=== PATIENT | male | born 1990 | race Hispanic/Latino ===

== ENCOUNTER 2021-12-28 18:15 | Inpatient (IN) | payer OTHER, SELFPAY ==
[~2021-12-28 18:15] MED LIST: Iopamidol-370 76% 500 ML 1 ML ONE
[2021-12-28] MEDS ORDERED: Fentanyl 100 MCG/2 ML VIAL ONE (18:34)
[2021-12-28 18:58] LABS: #Eosinphils 0.1 thou/uL (0.0-0.7); #Lymphocytes 2.3 thou/uL (1.20-3.40); #Monocytes 0.8 thou/uL (0.11-0.59); #Neutrophils 15.5 thou/uL (1.40-6.50); %Basophils 0.2 % (0.0-1.0); %Eosinophils 0.3 % (0.0-10.0); %Lymphocytes 12.2 % (21.0-51.0); %Monocytes 4.4 % (0.0-10.0); %Neutrophils 82.8 % (42.0-75.0); Hemoglobin 13.9 g/dL (14.0-18.0); Mean Corpuscular HGB CONC 34.6 g/dL (32.0-36.0); Mean Corpuscular Hemoglobin 31.4 pg (27.0-31.0); Mean Corpuscular Volume 90.7 fL (78.0-98.0); Mean Platelet Volume 7.8 fL (7.4-10.4); Platelet Count 233 thou/uL (130-400); RBC Distribution Width 11.5 % (11.5-14.5); Red Blood Cell (RBC) Count 4.42 mill/uL (4.70-6.10); White Blood Cell (WBC) Count 18.7 thou/uL (4.8-10.8)
[2021-12-28] MEDS ORDERED: Morphine 4 MG/ML VIAL ONE ×2 (19:15→22:08)
[2021-12-28 19:24] LABS: ALT (SGPT) 36 U/L (8-55); AST (SGOT) 26 U/L (5-34); Albumin 3.9 g/dL (3.5-5.0); Alkaline Phosphatase 87 U/L (40-110); Anion Gap 12 mmol/L (10-20); BUN (Urea Nitrogen) 13 mg/dL (8.9-20.6); Bilirubin, Total 1.1 mg/dL (0.2-1.2); Calc. Creatinine Clearance 0 mL/min (70-130); Calcium 8.7 mg/dL (7.8-10.44); Carbon Dioxide 25 mmol/L (22-29); Chloride 107 mmol/L (98-107); Estimated GFR 82; Globulin 3.1 g/dL (2.4-3.5); Glucose 92 mg/dL (70-105); Potassium 3.9 mmol/L (3.5-5.1); Sodium 140 mmol/L (136-145)
[2021-12-28] MEDS ORDERED: Lidocaine 1% PF 5 ML VIAL ONE ×2 (21:07→21:13)
[2021-12-28] MEDS ORDERED: Morphine 2 MG/ML VIAL SLOW IVP PRN (22:09)
[2021-12-28] MEDS ORDERED: Dextrose 5% in Water 1,000 ML IV PRN (22:09)
[2021-12-28] MEDS ORDERED: Promethazine HCl 25 MG/ML VIAL IM PRN (22:09)
[2021-12-28] MEDS ORDERED: Ondansetron ODT 4 MG TAB PO PRN (22:09)
[2021-12-28] MEDS ORDERED: Morphine 4 MG/ML VIAL SLOW IVP PRN (22:09)
[2021-12-28] MEDS ORDERED: Ondansetron PF 4 MG/2 ML Vial IVP PRN (22:09)
[2021-12-28] MEDS ORDERED: Dextrose 50% Abboject 50 ML SYRINGE SLOW IVP PRN (22:09)
[2021-12-28] MEDS ORDERED: traMADol HCl 50 MG TAB PO PRN (22:13)
[2021-12-28] MEDS ORDERED: Ibuprofen 200 MG TAB PO PRN (22:13)
[2021-12-28] MEDS: Acetaminophen 500 MG TAB PO SCH (23:30)
[2021-12-28] MEDS ORDERED: Sodium Chloride 0.9% 1,000 ML IV SCH (23:30)
[2021-12-28] MEDS: traMADol HCl 50 MG TAB PO SCH (23:31)
[2021-12-29 01:10] VITALS: BMI 40.3
[2021-12-29 01:38] LABS: SARS-CoV-2 NAA Rapid Test Not Detected (NotDetected)
[2021-12-29] MEDS: Cyclobenzaprine 10 MG TAB PO PRN ×3 (02:29→15:27)
[2021-12-29] MEDS: Gabapentin 100 MG CAP PO SCH ×3 (04:57→23:33)
[2021-12-29] MEDS: Acetaminophen 500 MG TAB PO SCH ×4 (04:58→23:33)
[2021-12-29] MEDS: traMADol HCl 50 MG TAB PO SCH ×4 (04:58→23:34)
[2021-12-29] MEDS ORDERED: CEFAZOLIN 2 GM in Sodium Chloride 0.9% 100 ML IVPB SCH (07:30)
[2021-12-29] MEDS ORDERED: TETANUS, DIPHTHERIA TOX,ADULT (TDVAX) 0.5 ML VIAL IM ONE (09:00)
[2021-12-29] MEDS: Polyethylene Glycol 3350 17 GM Packet PO SCH (09:27)
[2021-12-29] MEDS: Senokot S 8.6-50 MG TAB PO SCH ×2 (09:29→20:10)
[2021-12-29] MEDS: Famotidine 20 MG TAB PO SCH ×2 (09:29→20:11)
[2021-12-29] MEDS: Ascorbic Acid 500 mg Chewable Tablet PO SCH (20:10)
[2021-12-30 05:02] LABS: #Eosinphils 0.2 thou/uL (0.0-0.7); #Lymphocytes 2.8 thou/uL (1.20-3.40); #Monocytes 0.7 thou/uL (0.11-0.59); #Neutrophils 6.5 thou/uL (1.40-6.50); %Basophils 0.4 % (0.0-1.0); %Eosinophils 2.4 % (0.0-10.0); %Lymphocytes 27.1 % (21.0-51.0); %Monocytes 6.6 % (0.0-10.0); %Neutrophils 63.4 % (42.0-75.0); Hemoglobin 13.5 g/dL (14.0-18.0); Mean Corpuscular HGB CONC 33.4 g/dL (32.0-36.0); Mean Corpuscular Hemoglobin 30.7 pg (27.0-31.0); Mean Corpuscular Volume 91.9 fL (78.0-98.0); Mean Platelet Volume 7.7 fL (7.4-10.4); Platelet Count 226 thou/uL (130-400); RBC Distribution Width 11.6 % (11.5-14.5); Red Blood Cell (RBC) Count 4.42 mill/uL (4.70-6.10); White Blood Cell (WBC) Count 10.2 thou/uL (4.8-10.8)
[2021-12-30] MEDS: Acetaminophen 500 MG TAB PO SCH ×3 (05:06→17:06)
[2021-12-30] MEDS: traMADol HCl 50 MG TAB PO SCH ×3 (05:06→17:06)
[2021-12-30] MEDS: Gabapentin 100 MG CAP PO SCH ×2 (05:06→14:26)
[2021-12-30 05:21] LABS: Anion Gap 13 mmol/L (10-20); BUN (Urea Nitrogen) 11 mg/dL (8.9-20.6); Calc. Creatinine Clearance 180 mL/min (70-130); Calcium 8.8 mg/dL (7.8-10.44); Carbon Dioxide 24 mmol/L (22-29); Chloride 106 mmol/L (98-107); Estimated GFR 109; Glucose 92 mg/dL (70-105); Sodium 139 mmol/L (136-145)
[2021-12-30] MEDS: Senokot S 8.6-50 MG TAB PO SCH (07:30)
[2021-12-30] MEDS: Ascorbic Acid 500 mg Chewable Tablet PO SCH (07:30)
[2021-12-30] MEDS: Famotidine 20 MG TAB PO SCH (07:30)
[2021-12-30] MEDS: Polyethylene Glycol 3350 17 GM Packet PO SCH (07:30)
[2021-12-30] MEDS ORDERED: Sodium Chloride 0.9% 1,000 ML IV SCH (14:00)
[2021-12-30] MEDS ORDERED: Bacitracin Zinc Ointment 30 gm TUBE ONE (17:54)
[2021-12-30] MEDS ORDERED: Bupivacaine PF 0.5% 30 ML VIAL ONE (17:54)
[2021-12-30] MEDS ORDERED: Midazolam HCl 2 mg/2 ml Vial ONE (18:01)
[2021-12-30] MEDS ORDERED: Ketamine 50 MG/ML (10ML VIAL) ONE (18:02)
[2021-12-30] MEDS ORDERED: fentaNYL Citrate/PF 100 MCG/2 ML SYRINGE ONE (18:02)
[2021-12-30] MEDS ORDERED: HYDROmorphone 0.5 MG/0.5 ML SYRINGE ONE (18:02)
[2021-12-30] MEDS ORDERED: Sodium Chloride 0.9% 100 ML ONE (18:07)
[2021-12-30] MEDS ORDERED: CEFAZOLIN 2 GM VIAL ONE (18:07)
[2021-12-30] MEDS ORDERED: Lidocaine 1% PF 5 ML VIAL ONE (18:13)
[2021-12-30] MEDS ORDERED: Ketorolac Tromethamine 30 MG/ML VIAL ONE (18:13)
[2021-12-30] MEDS ORDERED: PROPOFOL 200 MG/20 ML VIAL ONE (18:13)
[2021-12-30] MEDS ORDERED: Dexamethasone 20 MG/5 ML VIAL ONE (18:13)
[2021-12-30] MEDS ORDERED: Ondansetron PF 4 MG/2 ML Vial ONE ×2 (18:13→22:10)
[2021-12-30] MEDS ORDERED: Meperidine HCl/PF 25 MG/ML VIAL SLOW IVP PRN (21:57)
[2021-12-30] MEDS ORDERED: HYDROmorphone 2 MG/ML VIAL SLOW IVP PRN (21:57)
[2021-12-30] MEDS ORDERED: Promethazine HCl 25 MG/ML VIAL IM PRN (21:57)
[2021-12-30] MEDS ORDERED: Promethazine HCl 25 MG/ML VIAL IVPB PRN (21:57)
[2021-12-30] MEDS ORDERED: Morphine Sulfate 2 MG/ML SYRINGE SLOW IVP PRN (21:57)
[2021-12-30] MEDS ORDERED: PACU-Morphine 4MG/ML VIAL SLOW IVP PRN (21:57)
[2021-12-30] MEDS ORDERED: Ketorolac Tromethamine 30 MG/ML VIAL IVP PRN (21:57)
[2021-12-30] MEDS ORDERED: Ondansetron HCl/PF 4 MG/2 ML Vial IVP PRN (21:57)
[2021-12-30] MEDS ORDERED: Morphine 4 MG/ML VIAL SLOW IVP PRN (22:14)
[2021-12-30] MEDS ORDERED: HYDROcodone/Acetaminophen 7.5/325 mg Tablet PO PRN (22:15)
[2021-12-30] MEDS ORDERED: Promethazine HCl 25 MG/ML VIAL ONE (22:27)
[2021-12-30] MEDS ORDERED: Fentanyl 100 MCG/2 ML VIAL ONE (22:35)
[2021-12-30] MEDS ORDERED: Scopolamine 1.5 mg/72 hour Patch ONE (23:04)
[2021-12-30] MEDS ORDERED: Metoclopramide HCl 10 MG/2 ML VIAL ONE (23:04)
[2021-12-30] MEDS ORDERED: Famotidine/PF 20 mg/2ml Vial ONE ×2 (23:04→23:05)
[2021-12-31] MEDS: traMADol HCl 50 MG TAB PO SCH ×3 (00:19→11:44)
[2021-12-31] MEDS: Ascorbic Acid 500 mg Chewable Tablet PO SCH ×2 (00:20→09:17)
[2021-12-31] MEDS: Famotidine 20 MG TAB PO SCH ×2 (00:21→09:16)
[2021-12-31] MEDS: Senokot S 8.6-50 MG TAB PO SCH ×2 (00:21→09:16)
[2021-12-31] MEDS: Gabapentin 100 MG CAP PO SCH ×2 (00:21→05:52)
[2021-12-31] MEDS: Acetaminophen 500 MG TAB PO SCH ×3 (00:21→11:44)
[2021-12-31] MEDS: CEFAZOLIN 2 GM in Sodium Chloride 0.9% 100 ML IVPB SCH ×3 (00:23→11:46)
[2021-12-31] MEDS ORDERED: Gabapentin 100 MG CAP PO SCH (08:17)
[2021-12-31] MEDS ORDERED: Gabapentin 300 MG CAP PO SCH ×2 (08:30→14:00)
[2021-12-31] MEDS: Polyethylene Glycol 3350 17 GM Packet PO SCH (09:20)
[2021-12-31] MEDS ORDERED: Ibuprofen 200 MG TAB PO SCH (14:00)
[2021-12-31 14:09] VITALS: BP 115/71; TEMP 98.6
== END 2021-12-31 15:40 | disposition home or self-care (01) | DRG 511 ==
LOC: ERS 18:15 → SURG B 22:12
PROVIDERS: ADMIT Physician Assistant Medical; ATTEND Surgery
PROC: 0HQ0XZZ Repair Scalp Skin, External Approach (ICD-10-PCS; 2021-12-28)
PROC: 0PSJ04Z Reposition Left Radius with Internal Fixation Device, Open Approach (ICD-10-PCS; principal; 2021-12-30)
PROC: 0PUJ07Z Supplement Left Radius with Autologous Tissue Substitute, Open Approach (ICD-10-PCS; 2021-12-30)
PROC: 0PBS0ZZ Excision of Left Thumb Phalanx, Open Approach (ICD-10-PCS; 2021-12-30)
PROC: 0PSL04Z Reposition Left Ulna with Internal Fixation Device, Open Approach (ICD-10-PCS; 2021-12-30)
DX: S52.512A Displaced fracture of left radial styloid process, initial encounter for closed fracture (principal); Z68.41 Body mass index [BMI] 40.0-44.9, adult; S52.122A Displaced fracture of head of left radius, initial encounter for closed fracture; S52.572A Other intraarticular fracture of lower end of left radius, initial encounter for closed fracture; Z20.822 Contact with and (suspected) exposure to COVID-19; S01.01XA Laceration without foreign body of scalp, initial encounter; Z28.311 Partially vaccinated for COVID-19; V68.5XXA Driver of heavy transport vehicle injured in noncollision transport accident in traffic accident, initial encounter; E66.01 Morbid (severe) obesity due to excess calories
CPT/HCPCS: 12014; 29125; 36415; 36416; 70450; 70486; 71260; 72125; 74177; 76000; 76377; 80048; 80053; 84484; 85025; 90714; 93005; 96374; 96375; 96376; C1713; C1894; G0390; J0690; J1100; J1170; J1885; J2250; J2270; J2405; J2550; J2704; J2765; J3010; J3490; J7050; Q9967; S0020; S0028; U0002